=== PATIENT | female | born 1950 | race Caucasian/White ===

== ENCOUNTER 2017-12-23 19:34 | Emergency (ER) | payer MEDICARE, OTHER ==
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
[2017-12-23] MEDS ORDERED: LIDOCAINE HCL/EPINEPHRINE 30 ML VIAL IJ ONE (20:11)
[2017-12-23] MEDS ORDERED: DIPHTH,PERTUSS(ACELL),TET VAC 0.5 ML VIAL IM ONE ×2 (20:19)
[2017-12-23 20:53] VITALS: BP 123/78
== END 2017-12-23 20:48 | disposition home or self-care (01) ==
LOC: ER 19:34
PROC: 0JQP0ZZ Repair Left Lower Leg Subcutaneous Tissue and Fascia, Open Approach (ICD-10-PCS; principal; 2017-12-23)
DX: Z87.891 Personal history of nicotine dependence; W01.10XA Fall on same level from slipping, tripping and stumbling with subsequent striking against unspecified object, initial encounter; S81.012A Laceration without foreign body, left knee, initial encounter